=== PATIENT | male | born 1985 | race Caucasian/White ===

== ENCOUNTER 2016-12-15 17:52 | Emergency (ER) | payer OTHER ==
[~2016-12-15] VITALS: Ht 182.9 cm; Wt 68.9 kg
[2016-12-15 19:44] VITALS: BP 118/89
== END 2016-12-15 19:44 | disposition home or self-care (01) ==
LOC: ED 17:52
DX: J45.901 Unspecified asthma with (acute) exacerbation (principal)
CPT/HCPCS: J7512; J7620

== ENCOUNTER 2017-05-02 08:51 | Emergency (ER) | payer OTHER ==
[~2017-05-02] VITALS: Ht 182.9 cm; Wt 74.8 kg
[2017-05-02 09:32] LABS: BASOPHIL % 0.5 % (0-2); PLATELET COUNT 316 x10^3mcL (130-400); RED CELL DISTRIBUTION WIDTH 12.8 % (11.5-14.5)
[2017-05-02 09:38] LABS: CALCIUM 8.5 mg/dL (8.5-10.1); CHLORIDE SERUM 103 mmol/L (98-107); GFR1 > 60 mL/min; GLUCOSE SERUM 97 mg/dL (74-106); POTASSIUM SERUM 3.4 mmol/L (3.5-5.1); SODIUM SERUM 139 mmol/L (136-145)
[2017-05-02 09:43] LABS: ALBUMIN 3.5 g/dL (3.4-5.0); ALKALINE PHOSPHATASE 52 U/L (46-116); ALT/SGPT 31 U/L (16-63); AST/SGOT 25 U/L (15-37); BILIRUBIN TOTAL 0.22 mg/dL (0.20-1.00); CHOLESTEROL 141 mg/dL (<200); CHOLESTEROL/HDL RATIO 5.2; HDL CHOLESTEROL 27 mg/dL (40-60); LIPASE 227 IU/L (73-393); TOTAL PROTEIN, SERUM 6.9 g/dL (6.4-8.2); TRIGLYCERIDES 365 mg/dL (<150)
[2017-05-02 09:54] LABS: FREE T4 0.78 ng/dL (0.76-1.46); FREE THYROXINE INDEX 1.5 ug/dL (1.4-4.5); T4(THYROXINE) 4.2 ug/dL (4.7-13.3)
[2017-05-02 12:16] VITALS: BP 132/68
== END 2017-05-02 12:16 | disposition home or self-care (01) ==
LOC: ED 08:51
PROVIDERS: Specialist
DX: K59.00 Constipation, unspecified (principal); J45.909 Unspecified asthma, uncomplicated
CPT/HCPCS: 83880; 84439; J1885; J2405; J3010; J7030; Q9967

== ENCOUNTER 2018-02-14 21:51 | Emergency (ER) | payer OTHER ==
[~2018-02-14] VITALS: Ht 182.9 cm; Wt 68.9 kg
[2018-02-14 21:56] VITALS: BP 113/92; Ht 182.9 cm; Wt 68.9 kg
== END 2018-02-14 22:33 | disposition home or self-care (01) ==
LOC: ED 21:51
DX: J45.901 Unspecified asthma with (acute) exacerbation (principal)
CPT/HCPCS: J7512; J7620

== ENCOUNTER 2018-04-07 21:55 | Emergency (ER) | payer MEDICAID ==
[2018-04-07 22:18] VITALS: Ht 182.9 cm
[2018-04-08 01:05] VITALS: BP 124/74
== END 2018-04-08 01:05 | disposition home or self-care (01) ==
LOC: ED 21:55
DX: S63.602A Unspecified sprain of left thumb, initial encounter (principal); S60.312A Abrasion of left thumb, initial encounter; J45.909 Unspecified asthma, uncomplicated; W26.0XXA Contact with knife, initial encounter; Y93.89 Activity, other specified; Y92.89 Other specified places as the place of occurrence of the external cause; Y99.8 Other external cause status

== ENCOUNTER 2020-01-27 14:20 | Emergency (ER) | payer OTHER ==
[~2020-01-27] VITALS: Ht 177.8 cm; Wt 73.9 kg
[2020-01-27 14:57] VITALS: Ht 177.8 cm; Wt 73.9 kg
[2020-01-27 16:57] LABS: BASOPHIL % 0.4 % (0-2); PLATELET COUNT 320 x10^3mcL (130-400); RED CELL DISTRIBUTION WIDTH 12.8 % (11.5-14.5)
[2020-01-27 17:09] LABS: CALCIUM 8.1 mg/dL (8.5-10.1); CARBON DIOXIDE 36.5 mmol/L (21-32); CHLORIDE SERUM 103 mmol/L (98-107); GFR1 > 60 mL/min; GLUCOSE SERUM 95 mg/dL (74-106); POTASSIUM SERUM 3.7 mmol/L (3.5-5.1); SODIUM SERUM 139 mmol/L (136-145)
[2020-01-27 17:13] LABS: ALKALINE PHOSPHATASE 51 U/L (46-116); ALT/SGPT 38 U/L (16-63); AST/SGOT 26 U/L (15-37); BILIRUBIN TOTAL 0.1 mg/dL (0.20-1.00); TOTAL PROTEIN, SERUM 6.2 g/dL (6.4-8.2)
[2020-01-27 17:15] LABS: ALBUMIN 3.3 g/dL (3.4-5.0)
[2020-01-27 19:20] VITALS: BP 123/72
== END 2020-01-27 20:46 | disposition home or self-care (01) ==
LOC: ED 14:20
PROVIDERS: Emergency Medicine
DX: M54.12 Radiculopathy, cervical region (principal); J45.909 Unspecified asthma, uncomplicated
CPT/HCPCS: 82962; Q0092